=== PATIENT | female | born 1985 | race American Indian/Alaskan Native ===

== ENCOUNTER 2017-10-29 10:07 | Emergency (ER) | payer MEDICAID ==
[2017-10-29 10:18] VITALS: BP 150/95
--- NOTE | 2017-10-29 12:15 | Emergency Department Report ---
ED Neck Pain/Injury HPI - General Chief Complaint: Neck Pain/Injury Stated Complaint: BACK AND NECK PAIN Time Seen by Provider: 10/29/17 12:01 Mode of arrival: Wheelchair Limitations: No Limitations - History of Present Illness Initial Comments: Patient is a 32-year-old female who is presenting with neck stiffness. Patient states that approximately a week ago she woke up and her neck was hurting. Patient states it hurts to turn her head from side to side and also to look upward or downward. Patient denies any headache fever or sore throat cough, congestion and chest pain shortness of breath at this time. Patient denies any trauma. Patient states she is actually unemployed. Patient does have a 7-year-old that does not feel as though picking her child up at any point in the last 2 weeks is causing any pain. - Related Data Previous Rx's Medication Instructions Recorded Last Taken Type Ibuprofen [Motrin] 800 mg PO Q8HR PRN #20 tablet 10/29/17 Unknown Rx methOCARBAMOL [Robaxin TAB] 500 mg PO Q6H PRN #15 tablet 10/29/17 Unknown Rx traMADol [Ultram] 50 mg PO Q6HR PRN #12 tablet 10/29/17 Unknown Rx Allergies Allergy/AdvReac Type Severity Reaction Status Date / Time No Known Allergies Allergy Unverified 10/29/17 10:17 ED Review of Systems ROS: Stated complaint: BACK AND NECK PAIN Other details as noted in HPI Comment: All other systems reviewed and negative ED Past Medical Hx - Past Medical History Previous Medical History?: No - Surgical History Past Surgical History?: No - Social History Smoking Status: Current Every Day Smoker Substance Use Type: None - Medications Home Medications: Home Medications Medication Instructions Recorded Confirmed Last Taken Type Ibuprofen [Motrin] 800 mg PO Q8HR PRN #20 tablet 10/29/17 Unknown Rx methOCARBAMOL [Robaxin TAB] 500 mg PO Q6H PRN #15 tablet 10/29/17 Unknown Rx traMADol [Ultram] 50 mg PO Q6HR PRN #12 tablet 10/29/17 Unknown Rx ED Physical Exam - General Limitations: No Limitations General appearance: alert, in no apparent distress - Head Head exam: Present: atraumatic, normocephalic - Eye Eye exam: Present: normal appearance - ENT ENT exam: Present: mucous membranes moist - Neck Neck exam: Present: normal inspection. Absent: tenderness, meningismus, full ROM, lymphadenopathy (patient has decreased range of motion secondary to pain however she is able to look upward and downward entire. This just very slowly.) , thyromegaly - Respiratory Respiratory exam: Present: normal lung sounds bilaterally. Absent: respiratory distress - Cardiovascular Cardiovascular Exam: Present: regular rate, normal rhythm. Absent: systolic murmur, diastolic murmur, rubs, gallop - GI/Abdominal GI/Abdominal exam: Present: soft, normal bowel sounds - Extremities Exam Extremities exam: Present: normal inspection - Back Exam Back exam: Present: normal inspection - Neurological Exam Neurological exam: Present: alert, oriented X3 - Psychiatric Psychiatric exam: Present: normal affect, normal mood - Skin Skin exam: Present: warm, dry, intact, normal color. Absent: rash ED Course Vital Signs 10/29/17 10:14 Temperature 98.7 F Pulse Rate 78 Respiratory 16 Rate Blood Pressure 150/95 O2 Sat by Pulse 100 Oximetry ED Medical Decision Making - Medical Decision Making Patient be given MS for symptomatically relief for treatment of a torticollis and referred to Dr. Waldron for reevaluation. Critical care attestation.: If time is entered above; I have spent that time in minutes in the direct care of this critically ill patient, excluding procedure time. ED Disposition Clinical Impression: Torticollis, acute Disposition: DC-01 TO HOME OR SELFCARE Is pt being admited?: No Does the pt Need Aspirin: No Condition: Stable Instructions: Spasmodic Torticollis (ED) Referrals: SHAKILA WALDRON MD [Staff Physician] - 3-5 Days
== END 2017-10-29 12:26 | disposition home or self-care (01) ==
LOC: ED 10:07
DX: M43.6 Torticollis (principal); F17.200 Nicotine dependence, unspecified, uncomplicated
CPT/HCPCS: 99282

== ENCOUNTER 2019-05-14 14:22 | Emergency (ER) | payer OTHER, MEDICAID ==
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
[2019-05-14 18:50] LABS: HCG Qualitative,Urine Negative (Negative)
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
[2019-05-14] MEDS ORDERED: oxyCODONE /ACETAMINOPHEN 5-325MG TAB PO ONE (20:02)
[2019-05-14] MEDS ORDERED: IBUPROFEN 600 MG TAB PO ONE (20:02)
[2019-05-14] MEDS: ONDANSETRON 4 MG ODT TAB PO ONE ×2 (20:12→20:13)
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
[2019-05-14 20:57] VITALS: BP 131/86
== END 2019-05-14 20:58 | disposition home or self-care (01) ==
LOC: ED 14:22
DX: S39.012A Strain of muscle, fascia and tendon of lower back, initial encounter (principal); S20.219A Contusion of unspecified front wall of thorax, initial encounter; F17.200 Nicotine dependence, unspecified, uncomplicated; Z98.51 Tubal ligation status; Z79.899 Other long term (current) drug therapy; V49.49XA Driver injured in collision with other motor vehicles in traffic accident, initial encounter; Y93.89 Activity, other specified; Y92.410 Unspecified street and highway as the place of occurrence of the external cause; Y99.8 Other external cause status
CPT/HCPCS: 71046; 72072; 72100; 81025; Q0162